=== PATIENT | male | born 1970 | race African-American/Black ===

== ENCOUNTER 2016-08-10 12:30 | Emergency (ER) | payer MEDICARE ==
[~2016-08-10 12:30] MED LIST: ADVIL PO; ASAB PO; CAT1 PO; CAT3 PO; CELLCEPT5 PO; CIALIS5 MG PO; COREG12 PO; COREG25 PO; DEMA20 PO; HYDRALAZINE100 MG PO; L20 PO; L80 PO; LEVAQUIN5T PO; LONITEN2.5 PO; LOP100 PO; MONO20 PO; MONOPRIL40 MG PO; NORV10 PO; NXL3 PO; PHOSLO PO; PRIN20 PO; PROGRAF1; PROGRAF1 PO; PROGRAF5; PROGRAF5 PO; TRAN200 PO; ULTRAM50 PO
== END 2016-08-10 14:02 | disposition home or self-care (01) ==
LOC: ER 12:30
DX: M54.5 Low back pain (principal); F17.200 Nicotine dependence, unspecified, uncomplicated; I10 Essential (primary) hypertension; Z88.8 Allergy status to other drugs, medicaments and biological substances; Z79.899 Other long term (current) drug therapy; Z79.82 Long term (current) use of aspirin
CPT/HCPCS: 72100; 99283